=== PATIENT | female | born 1945 | race Hispanic/Latino ===

== ENCOUNTER 2022-07-14 18:12 | Inpatient (IN) | payer MEDICARE, OTHER ==
[2022-07-14 18:57] LABS: Actual Bicarbonate (HCO3v) 27.9 mEq/L (22-28); Analyzer IN Cardio ER; Base Excess 2.7 mEq/L (-2.0 to +3.0); Calcium, Ionized (venous) 1.14 mmol/L (1.16-1.32); Chloride (VBG) 104 mmol/L (98-106); Hematocrit-VBG 46 % (36.0-47.0); Hemoglobin (Hb) 15.5 g/dL (11.7-16.1); Potassium (VBG) 3.62 mmol/L (3.70-5.30); Sodium 138.5 mmol/L (133-146); pH (venous) 7.413 (7.32-7.43)
[2022-07-14 19:08] LABS: #Eosinphils 0.3 thou/uL (0.0-0.7); #Lymphocytes 2.4 thou/uL (1.20-3.40); #Monocytes 0.5 thou/uL (0.11-0.59); #Neutrophils 5.4 thou/uL (1.40-6.50); %Basophils 0.4 % (0.0-1.0); %Eosinophils 3.7 % (0.0-10.0); %Lymphocytes 28.2 % (21.0-51.0); %Monocytes 5.3 % (0.0-10.0); %Neutrophils 62.4 % (42.0-75.0); Hemoglobin 14.4 g/dL (12.0-16.0); Mean Corpuscular HGB CONC 32.9 g/dL (32.0-36.0); Mean Corpuscular Hemoglobin 31.7 pg (27.0-31.0); Mean Corpuscular Volume 96.2 fl (78.0-98.0); Mean Platelet Volume 9.7 fL (7.4-10.4); Platelet Count 169 10x3/uL (130-400); RBC Distribution Width 12.2 % (11.5-14.5); Red Blood Cell (RBC) Count 4.56 mill/uL (4.20-5.40); White Blood Cell (WBC) Count 8.7 10x3/uL (4.8-10.8)
[2022-07-14] MEDS ORDERED: fentaNYL 50 mcg/mL 1 mL Vial ONE (19:20)
[2022-07-14] MEDS ORDERED: Boostrix 0.5 ML (Tdap) VIAL (>/=7 yrs of age) ONE (19:20)
[2022-07-14] MEDS ORDERED: Ondansetron PF 4 MG/2 ML Vial ONE (19:22)
[2022-07-14 19:30] LABS: ALT (SGPT) 39 U/L (8-55); AST (SGOT) 65 U/L (5-34); Albumin 3.8 g/dL (3.4-4.8); Alkaline Phosphatase 88 U/L (40-110); Anion Gap 15 mmol/L (10-20); BUN (Urea Nitrogen) 15 mg/dL (9.8-20.1); Bilirubin, Total 0.3 mg/dL (0.2-1.2); Calc. Creatinine Clearance 0 mL/min (70-130); Calcium 9.4 mg/dL (7.8-10.44); Carbon Dioxide 24 mmol/L (23-31); Chloride 104 mmol/L (98-107); Estimated GFR 73; Globulin 3.5 g/dL (2.4-3.5); Glucose 171 mg/dL (83-110); Lipase 20 U/L (8-78); Potassium 3.7 mmol/L (3.5-5.1); Protein, Total 7.3 g/dL (5.8-8.1); Sodium 139 mmol/L (136-145)
[2022-07-14] MEDS ORDERED: Ondansetron PF 4 MG/2 ML Vial IVP PRN (20:35)
[2022-07-14] MEDS ORDERED: Glucagon 1 MG/ML KIT IM PRN (20:35)
[2022-07-14] MEDS ORDERED: Dextrose 50% Abboject 50 ML SYRINGE SLOW IVP PRN (20:35)
[2022-07-14] MEDS ORDERED: Dextrose 5% in Water 1,000 ML IV PRN (20:35)
[2022-07-14] MEDS ORDERED: TETANUS, DIPHTHERIA TOX,ADULT (TDVAX) 0.5 ML VIAL IM ONE (20:35)
[2022-07-14] MEDS ORDERED: Ipratropium/Albuterol 3 ML NEB NEB PRN (20:35)
[2022-07-14] MEDS ORDERED: Morphine 2 MG/ML VIAL SLOW IVP PRN (20:35)
[2022-07-14] MEDS ORDERED: Acetaminophen 325 MG TAB PO SCH (20:45)
[2022-07-14] MEDS: Famotidine/PF 20 mg/2ml Vial SLOW IVP SCH (23:20)
[2022-07-14] MEDS: Sodium Chloride 0.9% 1,000 ML IV SCH (23:52)
[2022-07-15] MEDS ORDERED: Acetaminophen 325 MG TAB PO SCH (03:00)
[2022-07-15 05:26] LABS: #Lymphocytes 1.9 thou/uL (1.20-3.40); #Monocytes 0.8 thou/uL (0.11-0.59); %Basophils 0.2 % (0.0-1.0); %Eosinophils 0.5 % (0.0-10.0); %Lymphocytes 21.5 % (21.0-51.0); %Monocytes 8.7 % (0.0-10.0); %Neutrophils 69.2 % (42.0-75.0); Hemoglobin 12.5 g/dL (12.0-16.0); Mean Corpuscular HGB CONC 32.1 g/dL (32.0-36.0); Mean Corpuscular Hemoglobin 31.3 pg (27.0-31.0); Mean Corpuscular Volume 97.4 fl (78.0-98.0); Mean Platelet Volume 9.1 fL (7.4-10.4); Platelet Count 161 10x3/uL (130-400); RBC Distribution Width 12.1 % (11.5-14.5); White Blood Cell (WBC) Count 8.6 10x3/uL (4.8-10.8)
[2022-07-15 05:36] LABS: INR-International Normal Ratio 1.1; Prothrombin Time 14.8 sec (12.0-14.7)
[2022-07-15 05:37] LABS: PTT 29.9 sec (22.9-36.1)
[2022-07-15] MEDS: Sodium Chloride 0.9% 1,000 ML IV SCH (05:38)
[2022-07-15] MEDS: Acetaminophen 325 MG TAB PO SCH ×3 (05:39→18:27)
[2022-07-15 05:43] LABS: Anion Gap 12 mmol/L (10-20); BUN (Urea Nitrogen) 14 mg/dL (9.8-20.1); Calc. Creatinine Clearance 0 mL/min (70-130); Calcium 8.7 mg/dL (7.8-10.44); Carbon Dioxide 25 mmol/L (23-31); Chloride 105 mmol/L (98-107); Estimated GFR 85; Glucose 168 mg/dL (83-110); Potassium 4.2 mmol/L (3.5-5.1); Sodium 138 mmol/L (136-145)
[2022-07-15 07:25] VITALS: BMI 32.0
[2022-07-15] MEDS ORDERED: Iopamidol-370 76% 500 ML MDV (1 ML CHARGE) ONE (08:42)
[2022-07-15] MEDS: Famotidine/PF 20 mg/2ml Vial SLOW IVP SCH ×3 (08:57→20:29)
[2022-07-15] MEDS ORDERED: Dextrose 50% Abboject 50 ML SYRINGE SLOW IVP PRN (11:45)
[2022-07-15] MEDS ORDERED: Dextrose 5% in Water 1,000 ML IV PRN (11:45)
[2022-07-15] MEDS ORDERED: Glucagon 1 MG/ML KIT IM PRN (11:45)
[2022-07-15] MEDS: HumaLOG 300 UNITS/3 ML VIAL SC PRN ×3 (12:46→21:49)
[2022-07-15] MEDS ORDERED: Ketorolac Tromethamine 30 MG/ML VIAL IVP SCH (19:15)
[2022-07-15] MEDS: Cyclobenzaprine 10 MG TAB PO PRN (20:28)
[2022-07-15] MEDS: Gabapentin 100 MG CAP PO SCH (20:28)
[2022-07-15] MEDS ORDERED: traMADol HCl 50 MG TAB PO SCH (23:59)
[2022-07-16] MEDS: traMADol HCl 50 MG TAB PO SCH ×5 (00:26→23:22)
[2022-07-16] MEDS: Ketorolac Tromethamine 30 MG/ML VIAL IVP SCH ×5 (00:26→23:19)
[2022-07-16] MEDS: Acetaminophen 325 MG TAB PO SCH ×5 (00:27→23:19)
[2022-07-16] MEDS: Gabapentin 100 MG CAP PO SCH ×3 (08:51→21:23)
[2022-07-16] MEDS: Famotidine 20 MG TAB PO SCH ×2 (09:14→21:23)
[2022-07-16] MEDS: HumaLOG 300 UNITS/3 ML VIAL SC PRN ×3 (13:54→21:24)
[2022-07-16] MEDS: Cyclobenzaprine 10 MG TAB PO PRN (21:23)
[2022-07-17] MEDS: Acetaminophen 325 MG TAB PO SCH ×3 (05:43→17:36)
[2022-07-17] MEDS: traMADol HCl 50 MG TAB PO SCH ×3 (05:43→17:37)
[2022-07-17] MEDS: Famotidine 20 MG TAB PO SCH (08:23)
[2022-07-17] MEDS: Gabapentin 100 MG CAP PO SCH ×2 (08:24→15:24)
[2022-07-17] MEDS ORDERED: traMADol HCl 50 MG TAB PO PRN (11:57)
[2022-07-17] MEDS: HumaLOG 300 UNITS/3 ML VIAL SC PRN (12:00)
[2022-07-17 15:29] VITALS: BP 144/73; TEMP 98.4
== END 2022-07-17 18:30 | disposition home or self-care (01) | DRG 199 ==
LOC: ERS 18:12 → SURG A 20:29
PROVIDERS: ADMIT Surgery; ATTEND Surgery
DX: S27.0XXA Traumatic pneumothorax, initial encounter (principal); J96.01 Acute respiratory failure with hypoxia; S12.500A Unspecified displaced fracture of sixth cervical vertebra, initial encounter for closed fracture; S22.42XA Multiple fractures of ribs, left side, initial encounter for closed fracture; E11.9 Type 2 diabetes mellitus without complications; E78.5 Hyperlipidemia, unspecified; I10 Essential (primary) hypertension; Z87.891 Personal history of nicotine dependence; V49.50XA Passenger injured in collision with unspecified motor vehicles in traffic accident, initial encounter
CPT/HCPCS: 36415; 36416; 70450; 70498; 71045; 71260; 72125; 72170; 74177; 80048; 80053; 82805; 83690; 85025; 85610; 85730; 90715; 96374; 96375; G0390; J1650; J1815; J1885; J2272; J2405; J3010; J7050; Q9967; S0028